=== PATIENT | female | born 1940 | race Caucasian/White ===

== ENCOUNTER 2018-05-28 03:36 | Outpatient (CLI) | payer MEDICARE ==
[~2018-05-28 03:36] MED LIST: CHOL2000 PO; EPIG1POW; LEVO25TA7 PO; LOSA50TA3 PO; MELO-100 PO; OMEG-86; PROBIOTIC; TRAM50TA2 PO; TURM1POW; VALA500T37 PO; [UNRECOGNIZED DRUG - MIXTURE]; [UNRECOGNIZED DRUG - OTHER]; [UNRECOGNIZED DRUG - OTHER]
== END 2018-05-28 23:59 | disposition home or self-care (01) ==
LOC: DIABETIC 03:36
PROVIDERS: ATTEND Internal Medicine
DX: E11.9 Type 2 diabetes mellitus without complications (principal); I10 Essential (primary) hypertension; Z88.0 Allergy status to penicillin; Z90.710 Acquired absence of both cervix and uterus; Z85.828 Personal history of other malignant neoplasm of skin; Z98.1 Arthrodesis status
CPT/HCPCS: G0108

== ENCOUNTER 2018-08-06 02:15 | Outpatient (CLI) | payer MEDICARE | END 2018-08-06 23:59 | disposition home or self-care (01) | LOC: DIABETIC 02:15 | PROVIDERS: ATTEND Internal Medicine | DX: E11.9 Type 2 diabetes mellitus without complications (principal); I10 Essential (primary) hypertension; Z88.0 Allergy status to penicillin | CPT/HCPCS: G0108 ==

== ENCOUNTER 2018-11-03 03:12 | Outpatient (CLI) | payer MEDICARE | END 2018-11-03 23:59 | disposition home or self-care (01) | LOC: DIABETIC 03:12 | PROVIDERS: ATTEND Internal Medicine | DX: E11.9 Type 2 diabetes mellitus without complications (principal); I10 Essential (primary) hypertension | CPT/HCPCS: G0108 ==

== ENCOUNTER 2019-02-04 00:43 | Outpatient (CLI) | payer MEDICARE | END 2019-02-04 23:59 | disposition home or self-care (01) | LOC: DIABETIC 00:43 | PROVIDERS: ATTEND Internal Medicine | DX: E11.9 Type 2 diabetes mellitus without complications (principal); I10 Essential (primary) hypertension; Z88.0 Allergy status to penicillin | CPT/HCPCS: G0108 ==